=== PATIENT | female | born 1980 | race Caucasian/White ===

== ENCOUNTER 2018-01-07 10:17 | Inpatient (IN) | payer MEDICAID ==
[2018-01-07] MEDS ORDERED: MISOPROSTOL 200 MCG TAB PR ×2 (11:00→20:30)
[2018-01-07] MEDS ORDERED: METHYLERGONOVINE 0.2 MG INJ IM ×2 (11:00→20:30)
[2018-01-07] MEDS ORDERED: CARBOPROST 250 MCG INJ IM ×2 (11:00→20:30)
[2018-01-07] MEDS ORDERED: OXYTOCIN 30 UNITS/LR 500 ML IV ×2 (11:00→20:30)
[2018-01-07] MEDS: LACTATED RINGER'S 1,000 ML IV ×2 (11:22→20:18)
[2018-01-07 11:27] LABS: ADD MAN DIFF? NO
[2018-01-07 11:32] LABS: WHITE BLOOD COUNT 6.1 10^3/ul (4.8-10.8)
[2018-01-07 11:32] LABS: BASOPHILS % 0.2 % (0.0-2.0); EOSINOPHILS % 0.2 % (0.0-7.0); HEMATOCRIT 37.8 % (37.0-47.0); HEMOGLOBIN 13.2 g/dl (12.0-16.0); LYMPHOCYTES # 1.1 10^3/ul (0.8-2.9); LYMPHOCYTES % 17.6 % (15.0-51.0); MEAN CORPUSCULAR HEMOGLOBIN 30.6 pg (29.0-33.0); MEAN CORPUSCULAR HGB CONC 34.9 g/dl (32.0-37.0); MEAN CORPUSCULAR VOLUME 87.5 fl (82.0-101.0); MEAN PLATELET VOLUME 12.5 fl (7.4-10.4); MONOCYTE # 0.5 10^3/ul (0.3-0.9); MONOCYTES % 7.4 % (0.0-11.0); NEUTROPHIL # 4.5 10^3/ul (1.6-7.5); NEUTROPHILS % 73.9 % (39.0-77.0); PLATELET COUNT 190 10^3/UL (140-415); RED BLOOD COUNT 4.32 10^6/ul (4.20-5.40); RED CELL DISTRIBUTION WIDTH 14.3 % (11.5-14.5)
[2018-01-07 11:53] LABS: INR 0.92; PROTIME 12.4 Sec (11.9-14.9)
[2018-01-07 11:54] LABS: PARTIAL THROMBOPLASTIN TIME 27.6 Sec (25.0-35.0)
[2018-01-07] MEDS: CITRIC ACID/SODIUM CITRATE 15 ML CUP PO (12:05)
[2018-01-07] MEDS ORDERED: ONDANSETRON 4 MG INJ (13:13)
[2018-01-07] MEDS ORDERED: KETOROLAC 30 MG INJ (13:13)
[2018-01-07] MEDS ORDERED: morphine SULFATE/PF (10 MG/10 ML) INJ (13:13)
[2018-01-07] MEDS ORDERED: BUPIVACAINE 0.75%/DEXT (SPINAL) 2 ML INJ (13:13)
[2018-01-07] MEDS ORDERED: METOCLOPRAMIDE 10 MG INJ (13:13)
[2018-01-07 13:19] LABS: HEPATITIS B SURFACE ANTIGEN NEGATIVE (NEGATIVE)
[2018-01-07] MEDS ORDERED: PHENYLephrine (100 MCG/ML) 5ML SYG (13:29)
[2018-01-07] MEDS ORDERED: EPHEDrine SULFATE 50 MG/5 ML SYG (13:49)
[2018-01-07] MEDS: CEFAZOLIN 2 GM/50 ML (PMX) 50 ML IV (14:40)
[2018-01-07] MEDS: OXYTOCIN 30 UNITS/LR 500 ML IV ×2 (15:02→20:36)
[2018-01-07] MEDS ORDERED: NALOXONE (0.4 MG/ML) INJ IV (16:00)
[2018-01-07] MEDS ORDERED: DIPHENHYDRAMINE 50 MG INJ IV (16:00)
[2018-01-07] MEDS ORDERED: morphine (1 MG/ML) 10ML SYRINGE IV ×3 (16:00)
[2018-01-07] MEDS ORDERED: morphine 2 MG INJ IV ×2 (16:00)
[2018-01-07] MEDS ORDERED: ONDANSETRON 4 MG INJ IV (16:00)
[2018-01-07] MEDS ORDERED: EPHEDrine SULFATE 50 MG/5 ML SYG IV (16:00)
[2018-01-07] MEDS: KETOROLAC 30 MG INJ IV (18:08)
[2018-01-07] MEDS ORDERED: NA PHOSPHATE/BIPHOS 133 ML ENEMA PR (20:30)
[2018-01-07] MEDS ORDERED: NACL 0.9% 3 ML SYG IV (20:30)
[2018-01-07] MEDS ORDERED: LANOLIN 7 GM TUBE TOP (20:30)
[2018-01-07] MEDS: ONDANSETRON 4 MG INJ IV (20:37)
[2018-01-07 20:38] LABS: RAPID PLASMA REAGIN NONREACTIVE (NR)
[2018-01-07] MEDS: IBUPROFEN 800 MG TAB PO (22:00)
[2018-01-07] MEDS: morphine 2 MG INJ IV (22:34)
[2018-01-08] MEDS: DIPHENHYDRAMINE 50 MG INJ IV (04:44)
[2018-01-08] MEDS: IBUPROFEN 800 MG TAB PO ×3 (06:00→21:48)
[2018-01-08] MEDS: LACTATED RINGER'S 1,000 ML IV ×2 (06:54→12:18)
[2018-01-08 09:02] LABS: ADD MAN DIFF? NO
[2018-01-08 09:05] LABS: BASOPHILS % 0.3 % (0.0-2.0); EOSINOPHILS % 0.3 % (0.0-7.0); HEMATOCRIT 32.5 % (37.0-47.0); HEMOGLOBIN 11.1 g/dl (12.0-16.0); LYMPHOCYTES % 14.3 % (15.0-51.0); MEAN CORPUSCULAR HEMOGLOBIN 30.4 pg (29.0-33.0); MEAN CORPUSCULAR HGB CONC 34.2 g/dl (32.0-37.0); MEAN PLATELET VOLUME 11.7 fl (7.4-10.4); MONOCYTE # 0.5 10^3/ul (0.3-0.9); MONOCYTES % 7.4 % (0.0-11.0); NEUTROPHIL # 5.6 10^3/ul (1.6-7.5); NEUTROPHILS % 77.4 % (39.0-77.0); PLATELET COUNT 144 10^3/UL (140-415); RED BLOOD COUNT 3.65 10^6/ul (4.20-5.40); RED CELL DISTRIBUTION WIDTH 14.6 % (11.5-14.5)
[2018-01-08 09:05] LABS: WHITE BLOOD COUNT 7.3 10^3/ul (4.8-10.8)
[2018-01-08] MEDS: KETOROLAC 30 MG INJ IV (10:48)
[2018-01-08] MEDS: HYDROCODONE/APAP (5/325) TAB PO ×2 (14:57→20:06)
[2018-01-09] MEDS: HYDROCODONE/APAP (5/325) TAB PO ×2 (02:08→11:08)
[2018-01-09] MEDS: IBUPROFEN 800 MG TAB PO ×3 (06:16→21:33)
[2018-01-09 18:29] LABS: ADD UMIC YES; UR ASCORBIC ACID NEGATIVE (NEGATIVE); UR BILIRUBIN (Dip) NEGATIVE (NEGATIVE); UR BLOOD (Dip) 3+ mg/dL (NEGATIVE); UR CLARITY CLEAR (CLEAR); UR COLOR YELLOW (YELLOW); UR GLUCOSE (Dip) NEGATIVE (NEGATIVE); UR KETONES (Dip) NEGATIVE (NEGATIVE); UR LEUKOCYTE ESTERASE (Dip) NEGATIVE Leu/ul (NEGATIVE); UR NITRITE (Dip) NEGATIVE (NEGATIVE); UR RBC 85 /HPF (0-5); UR SPECIFIC GRAVITY (Dip) 1.017 (1.003-1.030); UR SQUAMOUS EPITHELIAL CELL FEW /HPF (FEW); UR TOTAL PROTEIN (Dip) NEGATIVE (NEGATIVE); UR UROBILINOGEN (Dip) NEGATIVE (NEGATIVE); UR WBC 4 /HPF (0-5)
[2018-01-10] MEDS: HYDROCODONE/APAP (5/325) TAB PO ×2 (00:01→08:54)
[2018-01-10] MEDS: IBUPROFEN 800 MG TAB PO ×2 (06:32→13:37)
[2018-01-10] MEDS: DIPHTH/TET/ACEL PERTUSS (ADULT) 0.5 ML VIAL IM* (08:55)
[2018-01-10] MEDS: MEASLES,MUMPS,RUBELLA VACCINE INJ SC* (10:19)
[2018-01-10] MEDS: BISACODYL (EC) 5 MG TAB PO (12:37)
== END 2018-01-10 15:08 | disposition home or self-care (01) | DRG 766 ==
LOC: L-D 10:17 → PP1 19:18
PROVIDERS: Obstetrics & Gynecology
PROC: 10D00Z1 Extraction of Products of Conception, Low, Open Approach (ICD-10-PCS; principal; 2018-01-07 15:30)
DX: O34.211 Maternal care for low transverse scar from previous cesarean delivery (principal); Z3A.39 39 weeks gestation of pregnancy; Z37.0 Single live birth
CPT/HCPCS: 81001; 85025; 85610; 85730; 86592; 86850; 86900; 86901; 87340